=== PATIENT | male | born 1990 | race Hispanic/Latino ===

== ENCOUNTER → 2024-09-07 | Outpatient (CLI) | payer OTHER ==
--- NOTE | 2024-09-07 16:40 | HMCIMG ---
EXAM: CT Head Without Intravenous Contrast. CLINICAL HISTORY: 65-year-old female syncope. TECHNIQUE: Axial computed tomography images of the head/brain without intravenous contrast. Dose reduction technique was used including one or more of the following: automated exposure control, adjustment of mA and kV according to patient size, and/or iterative reconstruction. COMPARISON: None. FINDINGS: BRAIN: Bilateral basal ganglia calcifications. No acute intraparenchymal hemorrhage. No mass lesion. No CT evidence for acute territorial infarct. No midline shift or extra-axial collection. VENTRICLES: No hydrocephalus. ORBITS: The orbits are unremarkable. SINUSES AND MASTOIDS: The paranasal sinuses and mastoid air cells are clear. SOFT TISSUES: No significant facial or scalp soft tissue swelling evident. No radiopaque foreign body is seen. BONES: No acute skull fracture. IMPRESSION: 1. No acute intracranial abnormality. 2. Bilateral basal ganglia calcifications. /[facility]
== END | disposition home or self-care (01) ==
LOC: RAH 14:02 → EEVIPCON 14:30
PROVIDERS: ATTEND Family Medicine
DX: J98.11 Atelectasis (principal); J98.4 Other disorders of lung; R91.8 Other nonspecific abnormal finding of lung field
CPT/HCPCS: 71250

== ENCOUNTER → 2024-10-03 | Outpatient (CLI) | payer OTHER ==
--- NOTE | 2024-10-04 09:34 | HMCIMG ---
EXAM: CR Chest, 2 views. CLINICAL HISTORY: Other nonspecific abnormality. COMPARISON: Prior CT chest dated 08 September 2024 FINDINGS: Mildly elevated right hemidiaphragm. The remainder of the lung parenchyma appears unremarkable. No evidence of pneumothorax. The cardiomediastinal silhouette is within normal limits. No acute osseous abnormality. IMPRESSION: Unchanged mild elevation of the right hemidiaphragm. No acute cardiopulmonary process. /[place]
== END | disposition home or self-care (01) ==
LOC: EEVIPCON 08:53 → RAH 08:53
PROVIDERS: ATTEND Family Medicine
DX: J98.6 Disorders of diaphragm (principal); R91.8 Other nonspecific abnormal finding of lung field
CPT/HCPCS: 71046